=== PATIENT | female | born 1970 | race Caucasian/White ===

== ENCOUNTER 2019-09-11 16:39 | Inpatient (IN) ==
[2019-09-11 18:00] LABS: Basophils # (auto) 0.01 K/uL (0-0.2); Basophils % (auto) 0.1 %; Eosinophils # (auto) 0.03 K/uL (0-0.5); Eosinophils % (auto) 0.2 %; Hematocrit (blood only) 40.6 % (37-47); Hemoglobin 13.8 g/dL (12.0-16.0); Immature Granulocytes # (auto) 0.07 K/uL (0.00-0.02); Immature Granulocytes % (auto) 0.4 %; Lymphocytes # (auto) 1.08 K/uL (1.2-3.4); Lymphocytes % (auto) 5.9 %; Mean Corpuscular Hemoglobin 29.4 pg (25-34); Mean Corpuscular Volume 86.6 fL (80-100); Mean Platelet Volume 9.9 fL (7.4-10.4); Monocytes # (auto) 0.62 K/uL (0.11-0.59); Monocytes % (auto) 3.4 %; Neutrophils # (auto) 16.37 K/uL (1.4-6.5); Platelet Count 311 K/uL (130-400); RDW Coefficient of Variation 14.2 % (11.5-14.5); Red Blood Count 4.69 M/uL (4.2-5.4); White Blood Count 18.18 K/uL (4.8-10.8)
[2019-09-11] MEDS ORDERED: ONDANSETRON INJ 2 MG/ML 2 ML VIAL IV STA (18:05)
[2019-09-11] MEDS ORDERED: HYDROmorphone INJ 1 MG/ML SYRINGE IV STA (18:05)
[2019-09-11] MEDS ORDERED: SODIUM CHLORIDE 0.9% 1000ML 2,000 ML IV ONE (18:05)
--- NOTE | 2019-09-11 18:10 | Emergency Department Note ---
Impression & Plan Abdominal pain, Hemorrhagic cyst of left ovary, Ovary, inflammation, Leukocytosis ED Provider Note NAME: GOSIA BERRIOS AGE: 48 SEX: F : 1970 ARRIVES VIA: Walk-In INFORMANT: Patient ED PROVIDER(S): Dave Thompson DO CHIEF COMPLAINT: Abdominal pain HPI: Patient is a 48-year-old female who presents the ER for left lower quadrant abdominal pain. This started yesterday. She was seen at [facility] and had a CT done and was discharged home with a possible ovarian cyst. She followed up with [facility] today. They noted that it was her balance and not her ovaries. Patient notes that any current movement makes the pain worse. Currently a 10 out of 10. She is taking Ultram with no improvement. No nausea or vomiting. No diarrhea. Last bowel movement within the past 24 hours. No dysuria urgency or frequency. She just started her menstrual cycle yesterday. She notes it is a very light flow. Denies any cough fevers. No other exacerbating or remitting factors. ROS: See above HPI for pertinent positives & negatives. A total of 10 systems reviewed and were otherwise negative. PAST MEDICAL HISTORY:See Below PAST SURGICAL HISTORY:See Below FAMILY HISTORY:See Below SOCIAL HISTORY:See Below HOME MEDICATIONS:See Below ALLERGIES:See Below VITALS:See Below PHYSICAL EXAMINATION: GENERAL: Sitting up in bed, alert, moderate distress holding left lower quadrant EYE EXAM: normal conjunctiva. OROPHARYNX: no exudate, no erythema, lips, buccal mucosa, and tongue normal and mucous membranes are moist NECK: supple, no nuchal rigidity, no adenopathy, non-tender LUNGS: Clear to auscultation. Normal chest wall mechanics HEART: no murmurs, S1 normal and S2 normal ABDOMEN: abdomen soft, tender palpation left lower quadrant, normo-active bowel sounds, no masses, no rebound or guarding. BACK: Back is symmetrical on inspection and there is no deformity, no midline tenderness, no CVA tenderness. SKIN: no rashes and no bruising UPPER EXTREMITIES: upper extremities are grossly normal. LOWER EXTREMITIES: No pitting edema. NEURO EXAM: Normal sensorium, cranial nerves II-XII grossly intact, normal speech, no gross weakness of arms, no gross weakness of legs. MEDICAL DECISION MAKING: Patient is a 48 y/o female who presents to the ER for severe left lower quadrant abdominal pain. Patient was seen in outside facility and had a CT and ultrasound of her left ovary which showed a hemorrhagic cyst. She follow-up with [facility] presents today for worsening pain. IV was established blood work was obtained. Labs show a leukocytosis of 18,000. No significant anemia. BMP with mild hypokalemia. LFTs bilirubin was unremarkable. hCG was negative. UA was contaminated with multiple epithelial cells. as discussed was negative. CT abdomen pelvis shows enlarged ovary with stranding. Concern for torsion consequently called [facility]. They recommended ultrasound evaluated patient at bedside. Ultrasound shows a hemorrhagic cyst. Patient was given 1.5 mg of Dilaudid. She became slightly hypoxic. She still having significant pain. She was taken to the OR by [facility]. Triage Nursing notes reviewed. Prior medical records reviewed Vital Signs: reviewed and remarkable for tachycardic Differential diagnosis: Differential diagnoses includes but is not limited to gastritis, peptic ulcer disease, GERD, gallbladder disease, pancreatitis, small bowel obstruction, acute coronary syndrome, pericarditis, ischemic bowel, irritable bowel disease, irri table bowel syndrome, appendicitis, diverticulitis, malignancy, hernia, urinary tract infection, torsion, /ectopic (if female), perforation, trauma, infectious. ER treatment provided: See below Diagnostics interpreted by me: ECG: none Cardiac Monitoring: An order was placed for continuous cardiac monitoring. The monitor shows a rate of 110 with sinus rhythm. Laboratory studies: As stated above and show below. Imaging studies: Ultrasound shows hemorrhagic left ovarian cyst CT shows large left ovarian mass Consultation(s): Maria Dolores with Dr. Liu from [facility] ED COURSE: Procedures: none Critical Care: None Past Med/Surg History Social History Feels Safe at Home: Yes Smoking Status: Current every day smoker Allergies Allergies Allergy/AdvReac Type Severity Reaction Status Date / Time No Known Allergies Allergy Mild Unverified 12/31/05 17:03 Home Meds Home Medications Medication Instructions Recorded Confirmed hydroxyzine HCl 10 mg PO UD PRN 09/11/19 09/11/19 ibuprofen 400 mg PO Q6H PRN 09/11/19 09/11/19 rivaroxaban [Xarelto] 10 mg PO DAILY 09/11/19 09/11/19 simethicone [Mi-Acid Gas 80 mg PO QID PRN 09/11/19 09/11/19 Relief(simethicon)] Results & Data (ED) Vital Signs Vital Signs - 24 hr 09/11/19 16:50 09/11/19 18:49 09/11/19 19:33 Temperature 37.3 C Temperature Source Oral Pulse Rate 135 H Pulse Rate [Finger] 118 H 111 H Respiratory Rate 20 20 18 Respiratory Effort / Characteristics Non-Labored Spontaneous Non-Labored Spontaneous Non-Labored Respiratory Depth Normal Normal Normal Respiratory Pattern Regular Blood Pressure 118/76 Blood Pressure [Right Arm] 137/89 129/82 Blood Pressure Mean 90 Blood Pressure Mean [Right Arm] 105 97 Pulse Oximetry 95 96 94 Oxygen Delivery Method Room Air Room Air Room Air Oxygen Flow Rate Sepsis Recent Fever Within 48 Hours No Sepsis Action Taken by Nursing No Action Required 09/11/19 21:30 09/11/19 21:55 09/11/19 22:01 Temperature 37.7 C H Temperature Source Oral Pulse Rate Pulse Rate [Finger] 118 H Respiratory Rate 20 18 18 Respiratory Effort / Characteristics Non-Labored Respiratory Depth Normal Respiratory Pattern Blood Pressure Blood Pressure [Right Arm] 129/78 Blood Pressure Mean Blood Pressure Mean [Right Arm] 95 Pulse Oximetry 92 88 L 92 Oxygen Delivery Method Room Air Room Air Nasal Cannula Oxygen Flow Rate 2 Sepsis Recent Fever Within 48 Hours Sepsis Action Taken by Nursing 09/11/19 22:32 Temperature Temperature Source Pulse Rate Pulse Rate [Finger] 115 H Respiratory Rate 18 Respiratory Effort / Characteristics Respiratory Depth Respiratory Pattern Blood Pressure Blood Pressure [Right Arm] 119/70 Blood Pressure Mean Blood Pressure Mean [Right Arm] 86 Pulse Oximetry 92 Oxygen Delivery Method Nasal Cannula Oxygen Flow Rate 2 Sepsis Recent Fever Within 48 Hours Sepsis Action Taken by Nursing Laboratory Data Result diagrams: 09/11/19 17:50 09/11/19 17:50 Lab Results 09/11/19 09/11/19 09/11/19 Range/Units 17:50 17:50 17:50 WBC 18.18 H (4.8-10.8) K/uL RBC 4.69 (4.2-5.4) M/uL Hgb 13.8 (12.0-16.0) g/dL Hct 40.6 (37-47) % MCV 86.6 (80-100) fL MCH 29.4 (25-34) pg MCHC 34.0 (32-36) g/dL RDW Std Deviation 44.0 (36.4-46.3) fL RDW Coeff of Amelia 14.2 (11.5-14.5) % Plt Count 311 (130-400) K/uL MPV 9.9 (7.4-10.4) fL Immature Gran % (Auto) 0.4 % Neut % (Auto) 90.0 % Lymph % (Auto) 5.9 % [place] % (Auto) 3.4 % Eos % (Auto) 0.2 % Baso % (Auto) 0.1 % Neut # (Auto) 16.37 H (1.4-6.5) K/uL Lymph # (Auto) 1.08 L (1.2-3.4) K/uL [place] # (Auto) 0.62 H (0.11-0.59) K/uL Eos # (Auto) 0.03 (0-0.5) K/uL Baso # (Auto) 0.01 (0-0.2) K/uL Immature Gran # (Auto) 0.07 H (0.00-0.02) K/uL Sodium 138 (136-145) mmol/L Potassium 3.3 L (3.5-5.1) mmol/L Chloride 108 H (98-107) mmol/L Carbon Dioxide 21 (21-32) mmol/L Anion Gap 9.0 (3-11) BUN 9 (7-18) mg/dl Creatinine 0.94 (0.6-1.2) mg/dl Est Cr Clr Drug Dosing 82.2 ml/min Est GFR ( Amer) 82.0 Est GFR (Non-Af Amer) 70.7 BUN/Creatinine Ratio 9.1 L (10-20) Glucose 122 H (70-99) mg/dl Calcium 8.7 (8.5-10.1) mg/dl Total Bilirubin 0.6 (0.2-1) mg/dl AST 6 L (15-37) U/L ALT 13 (12-78) U/L Alkaline Phosphatase 70 (45-117) U/L Total Protein 8.5 H (6.4-8.2) gm/dl Albumin 3.3 L (3.4-5.0) gm/dl Globulin 5.1 H (2.5-4.0) gm/dl Albumin/Globulin Ratio 0.6 L (0.9-2) Lipase 47 L (73-393) U/L HCG, Qual Negative (Negative) Urine Color Urine Appearance (Clear) Urine pH (4.5-7.5) Ur Specific [place] (1.000-1.030) Urine Protein (Negative) Urine Glucose (UA) (Negative) Urine Ketones (Negative) Urine Blood (Negative) Urine Nitrite (Negative) Urine Bilirubin (Negative) Urine Urobilinogen (Negative) Ur Leukocyte Esterase (Negative) Urine WBC (Auto) (0-5) /hpf Urine RBC (Auto) (0-4) /hpf U Hyaline Cast (Auto) (0-5) /lpf U Epithel Cells (Auto) (0-5) /lpf Urine Bacteria (Auto) (Negative) Urine Mucus (None Prsent) Urine Yeast POC Ur Test (NEG) 09/11/19 09/11/19 Range/Units Unknown Unknown WBC (4.8-10.8) K/uL RBC (4.2-5.4) M/uL Hgb (12.0-16.0) g/dL Hct (37-47) % MCV (80-100) fL MCH (25-34) pg MCHC (32-36) g/dL RDW Std Deviation (36.4-46.3) fL RDW Coeff of Amelia (11.5-14.5) % Plt Count (130-400) K/uL MPV (7.4-10.4) fL Immature Gran % (Auto) % Neut % (Auto) % Lymph % (Auto) % [place] % (Auto) % Eos % (Auto) % Baso % (Auto) % Neut # (Auto) (1.4-6.5) K/uL Lymph # (Auto) (1.2-3.4) K/uL [place] # (Auto) (0.11-0.59) K/uL Eos # (Auto) (0-0.5) K/uL Baso # (Auto) (0-0.2) K/uL Immature Gran # (Auto) (0.00-0.02) K/uL Sodium (136-145) mmol/L Potassium (3.5-5.1) mmol/L Chloride (98-107) mmol/L Carbon Dioxide (21-32) mmol/L Anion Gap (3-11) BUN (7-18) mg/dl Creatinine (0.6-1.2) mg/dl Est Cr Clr Drug Dosing ml/min Est GFR ( Amer) Est GFR (Non-Af Amer) BUN/Creatinine Ratio (10-20) Glucose (70-99) mg/dl Calcium (8.5-10.1) mg/dl Total Bilirubin (0.2-1) mg/dl AST (15-37) U/L ALT (12-78) U/L Alkaline Phosphatase (45-117) U/L Total Protein (6.4-8.2) gm/dl Albumin (3.4-5.0) gm/dl Globulin (2.5-4.0) gm/dl Albumin/Globulin Ratio (0.9-2) Lipase (73-393) U/L HCG, Qual (Negative) Urine Color Dark Yellow Urine Appearance Clear (Clear) Urine pH 5.0 (4.5-7.5) Ur Specific [place] 1.026 (1.000-1.030) Urine Protein 1+ H (Negative) Urine Glucose (UA) Negative (Negative) Urine Ketones Trace H (Negative) Urine Blood 3+ H (Negative) Urine Nitrite Negative (Negative) Urine Bilirubin Negative (Negative) Urine Urobilinogen Negative (Negative) Ur Leukocyte Esterase Negative (Negative) Urine WBC (Auto) 1-5 (0-5) /hpf Urine RBC (Auto) 0-4 (0-4) /hpf U Hyaline Cast (Auto) 1-5 (0-5) /lpf U Epithel Cells (Auto) >30 H (0-5) /lpf Urine Bacteria (Auto) 2+ H (Negative) Urine Mucus Present A (None Prsent) Urine Yeast Not Reportable POC Ur Test NEG (NEG) Administered Medications Ioversol (Optiray 320 100ml) 93 ml IV ONCE PRN PRN Reason: Interaction Checking Stop: 09/15/19 19:05 Last Admin: 09/11/19 19:07 Dose: 93 ml Documented by: [id number] Discontinued Medications Hydromorphone HCl (Dilaudid) 1 mg IV NOW STA Stop: 09/11/19 18:06 Last Admin: 09/11/19 18:47 Dose: 1 mg Documented by: [id number] Hydromorphone HCl (Dilaudid) 0.5 mg IV NOW STA Stop: 09/11/19 21:10 Last Admin: 09/11/19 21:31 Dose: 0.5 mg Documented by: [id number] Sodium Chloride (Nss 1000ml) 2,000 mls @ 999 mls/hr IV .Q2H1M ONE Stop: 09/11/19 20:05 Last Infusion: 09/11/19 20:47 Dose: 0 mls/hr Documented by: [id number] Admin: 09/11/19 18:47 Dose: 999 mls/hr Documented by: [id number] Ondansetron HCl (Zofran) 4 mg IV NOW STA Stop: 09/11/19 18:06 Last Admin: 09/11/19 18:47 Dose: 4 mg Documented by: [id number] Discharge Plan Visit Data Chief Complaint: Abdominal Pain Stated Complaint: ABD PAIN ED Provider: Dave Thompson Discharge Problem: Abdominal pain, Hemorrhagic cyst of left ovary, Ovary, inflammation, Leuk ocytosis Discharge Problem: Abdominal pain Qualifiers: Abdominal location: unspecified location Qualified Code(s): R10.9 - Unspecified abdominal pain Leukocytosis Qualifiers: Leukocytosis type: unspecified Qualified Code(s): D72.829 - Elevated white blood cell count, unspecified
[2019-09-11 18:16] LABS: Albumin Level 3.3 gm/dl (3.4-5.0); BUN Creatinine Ratio 9.1 (10-20); Calcium 8.7 mg/dl (8.5-10.1); Creatinine Clr Calc Pharmacy 82.2 ml/min; Est GFR (Non-African American) 70.7; Potassium 3.3 mmol/L (3.5-5.1)
[2019-09-11 18:19] LABS: Albumin Globulin Ratio 0.6 (0.9-2); Bilirubin,Total 0.6 mg/dl (0.2-1); Globulin 5.1 gm/dl (2.5-4.0); Total Protein 8.5 gm/dl (6.4-8.2)
[2019-09-11 18:23] LABS: Pregnancy Test, Serum Negative (Negative)
[2019-09-11 19:05] LABS: Appearance Urine Clear (Clear); Bilirubin Urine Negative (Negative); Blood Urine 3+ (Negative); Color Urine Dark Yellow; Epithelial Cell Urine Auto >30 /lpf (0-5); Glucose Urine UA Negative (Negative); Ketones Urine Trace (Negative); Leukocyte Esterase Urine Negative (Negative); Nitrite Urine Negative (Negative); Protein Urine 1+ (Negative); RBC Urine Automated 0-4 /hpf (0-4); Specific Gravity Urine 1.026 (1.000-1.030); Urobilinogen Urine Negative (Negative)
[2019-09-11] MEDS ORDERED: IOVERSOL 100ml IV PRN (19:06)
[2019-09-11 19:20] LABS: Bacteria Urine Automated 2+ (Negative); Mucus Urine Present (None Prsent)
--- NOTE | 2019-09-11 19:29 | CT Scan Report ---
CT abd pelvis IV con only CLINICAL HISTORY: Severe left lower quadrant pain COMPARISON STUDY: None. TECHNIQUE: Patient was scanned in a dynamic helical fashion during intravenous administration of 93 c c of Optiray 320. A dose lowering technique was utilized adhering to the principles of ALARA. CT DOSE: 720.33 mGy.cm FINDINGS: Lower chest: There are bibasilar opacity statistically atelectatic. Liver: The contrast-enhanced liver is normal in size, contour, and attenuation. There is no intrahepa tic biliary ductal dilatation. The hepatic veins and portal veins are patent. Gallbladder: The gallbladder is mildly distended and contains multiple calculi. There is no perichole cystic edema. Spleen: Mildly enlarged measuring 16 cm Pancreas: Unremarkable. Adrenal glands: There is an indeterminate 2 cm left adrenal nodule. There is minor right adrenal glan d thickening. Further evaluation could be obtained with an adrenal protocol CT scan as deemed clinica lly appropriate Kidneys: There is no hydronephrosis. No solid renal masses are visualized. There is a 12 mm left uriah l cyst. Bowel: There is borderline appendiceal dilatation without evidence of periappendiceal inflammatory ch rpadeep. There are fluid-filled loops of colon and small bowel. There are no transition zones indicate b owel obstruction. There is colonic diverticulosis without current evidence of acute diverticulitis. Peritoneum: There is a small amount of free pelvic fluid slightly greater than expected for physiolog ic free fluid. There is a small fat-containing umbilical hernia. Vasculature: The abdominal aorta is normal in course and caliber. Adenopathy: None. Pelvic viscera: There is an enlarged left ovary measuring 63 mm. There is infiltration of the adjacen t fat. Clinical correlation to exclude ovarian torsion or tubo-ovarian abscess is recommended. Skeletal structures: No destructive osseous lesions are seen. IMPRESSION: 1. Enlarged multicystic left ovary measuring 63 mm. There is infiltration of the adjacent fat. Clinic al correlation to exclude ovarian torsion or tubo-ovarian abscess is recommended. 2. No evidence of bowel obstruction. No evidence of free air 3. Diverticulosis without current evidence of acute diverticulitis 4. Free pelvic fluid, slightly in excess of that expected for physiologic free fluid 5. Borderline appendiceal dilatation without evidence of periappendiceal inflammatory change 6. Cholelithiasis. 7. 3 cm indeterminate left adrenal nodule ACT 112: Negative or not required by law. Electronically signed by: Tomi Lee M.D. 09/11/2019 7:28 PM
[2019-09-11] MEDS ORDERED: HYDROmorphone INJ 0.5 MG/0.5 ML SYR IV STA (21:09)
[2019-09-11] MEDS ORDERED: BUPIVACAINE 0.5 % 5 MG/1 ML MPF 30ML VIAL ONE (22:09)
--- NOTE | 2019-09-11 22:15 | Anesthesiology Consultation ---
Date of Service September 11, 2019 Assessment & Plan Chart Review Chart Review: Acceptable Risk for Surgery and Patient NOT seen in Pre Admission Testing Consults Requested none ASA [id number] Proposed Anesthesia Anesthesia Type: General History Surgery Operation Date: 09/11/19 22:00 Proposed Procedures p Laparoscopic Ectopic - Valentin Liu MD Height/Weight Height: 5 ft 7 in Weight: 89.4 kg Allergies Allergy/AdvReac Type Severity Reaction Status Date / Time No Known Allergies Allergy Mild Unverified 12/31/05 17:03 Medications Home Medications Medication Instructions Recorded Confirmed Last Taken hydroxyzine HCl 10 mg PO UD PRN 09/11/19 09/11/19 Unknown ibuprofen 400 mg PO Q6H PRN 09/11/19 09/11/19 Unknown rivaroxaban [Xarelto] 10 mg PO DAILY 09/11/19 09/11/19 09/11/19 simethicone [Mi-Acid Gas 80 mg PO QID PRN 09/11/19 09/11/19 Unknown Relief(simethicon)] Active Medications Generic Name Dose Route Start Last Admin Trade Name Freq PRN Reason Stop Dose Admin Ioversol 93 ml 09/11/19 19:06 09/11/19 19:07 Optiray 320 100ml IV 09/15/19 19:05 93 ml ONCE PRN Administration Interaction Checking Exercise / Class Metabolic Activity II 4-5 Yardwork/Stairs/Walk up hill Past Anesthesia History No Hx of Anesthesia Complications and No Family Hx of Anesthesia Complications History of PONV No Hx of PONV and No Hx of Motion Sickness Social History Smoking Status: Current every day smoker Physical Exam Vital Signs Last Vital Signs Temp 37.7 C H 09/11/19 21:30 Pulse 118 H 09/11/19 21:30 Resp 18 09/11/19 22:01 BP 129/78 09/11/19 21:30 Pulse Ox 92 09/11/19 22:01 Testing Laboratory Results 09/11/19 17:50 09/11/19 17:50 Urine Color Dark Yellow 09/11/19 Unknown Urine Appearance Clear (Clear) 09/11/19 Unknown Urine pH 5.0 (4.5-7.5) 09/11/19 Unknown Ur Specific [place] 1.026 (1.000-1.030) 09/11/19 Unknown Urine Protein 1+ (Negative) H 09/11/19 Unknown Urine Glucose (UA) Negative (Negative) 09/11/19 Unknown Urine Ketones Trace (Negative) H 09/11/19 Unknown Urine Nitrite Negative (Negative) 09/11/19 Unknown Ur Leukocyte Esterase Negative (Negative) 09/11/19 Unknown Urine WBC (Auto) 1-5 /hpf (0-5) 09/11/19 Unknown Urine RBC (Auto) 0-4 /hpf (0-4) 09/11/19 Unknown U Hyaline Cast (Auto) 1-5 /lpf (0-5) 09/11/19 Unknown U Epithel Cells (Auto) >30 /lpf (0-5) H 09/11/19 Unknown Urine Bacteria (Auto) 2+ (Negative) H 09/11/19 Unknown 09/11/19 Unknown POC Ur Test NEG
[2019-09-11] MEDS ORDERED: fentaNYL citrate 100 MCG/2 ML VIAL IV PRN (22:40)
[2019-09-11] MEDS ORDERED: HYDROmorphone INJ 1 MG/ML SYRINGE IV PRN (22:40)
[2019-09-11] MEDS ORDERED: FLUMAZENIL 0.1 MG/1 ML 10 ML VIAL IV PRN (22:40)
[2019-09-11] MEDS ORDERED: ONDANSETRON INJ 2 MG/ML 2 ML VIAL IV PRN (22:40)
[2019-09-11] MEDS ORDERED: LABETALOL HCL IV 5 MG/ML 20ML IV PRN (22:40)
[2019-09-11] MEDS ORDERED: NALOXONE HCL 0.4 MG/1 ML VIAL/CARP IV PRN (22:40)
[2019-09-11] MEDS ORDERED: ATROPINE SULFATE 0.1 MG/ML 10ML SYR IV PRN (22:40)
[2019-09-11] MEDS ORDERED: ePHEDrine sulfate 50 MG/ML AMP IV PRN (22:40)
[2019-09-11] MEDS ORDERED: PROMETHAZINE HCL 12.5 MG in SODIUM CHLORIDE 0.9% 50 ML IV PRN (22:40)
[2019-09-11] MEDS ORDERED: PROPOFOL IV EMULSION 10 MG/ML 20 ML VIAL IV ONE (22:48)
[2019-09-11] MEDS ORDERED: SUCCINYLCHOLINE 100MG/5ML SYR IV ONE (22:48)
[2019-09-11] MEDS ORDERED: fentaNYL citrate 100 MCG/2 ML VIAL ONE ×3 (22:49→23:39)
[2019-09-11] MEDS ORDERED: MIDAZOLAM HCL 1 MG/ML 2ML VIAL ONE (22:50)
--- NOTE | 2019-09-11 22:58 | History & Physical Bridge Note ---
Date of Service September 11, 2019 History & Physical Bridge Note I have examined the patient, reviewed the History & Physical and in the interval since the performance of the History & Physical I have noted the following changes of clinical significance: no changes noted
--- NOTE | 2019-09-11 23:22 | Consultation Report ---
DATE OF CONSULTATION: 09/11/2019 REASON FOR CONSULTATION: Left lower quadrant abdominal pain with ovarian cyst. BRIEF HISTORY: Yudith is a 48-year-old who presented with acute onset abdominal pain yesterday. The patient reports that the pain started with rapid onset of severe left lower quadrant pain. The patient described the pain as a sharp, stabbing to colicky type pain that is persistent since yesterday. The patient reports the pain has progressively worsened over the past day and has come to a point where it has become unbearable for her. She was seen at several outside Emergency Departments and initially was seen and was noted to have a left ovarian cyst, which they suspected was a hemorrhagic cyst. She was sent to a different facility for further evaluation and that Emergency Department felt that this was something that was bowel related. The patient presented today to our Emergency Department for further evaluation and second opinion. The CT scan was performed which was notable for a left adnexal mass, likely ovarian or tubal in origin. The suspicion based on CT scan was a likely ovarian torsion versus left tubo-ovarian abscess. An ultrasound was performed subsequently, which noted a left hemorrhagic cyst in the ovary measuring approximately 7 cm in greatest diameter. There was noted to be both venous and arterial flow in the ovary with normal-appearing waveforms present. There was noted to be some complex fluid in the posterior cul-de-sac.. The uterus was unremarkable otherwise. Right adnexa unremarkable. The ultrasound findings were discussed with Yudith in the ED today and options were further discussed. PAST MEDICAL HISTORY: The patient denies any significant past medical history. PAST SURGICAL HISTORY: Prior section. MEDICATIONS: Please see EMR. 1. Hydroxyzine. 2. Ibuprofen. 3. Xarelto. 4. Simethicone. ALLERGIES: The patient denies any known drug allergies. FAMILY HISTORY: Noncontributory to current admission. SOCIAL HISTORY: The patient reports tobacco use. Denies illicit drug use. PHYSICAL EXAMINATION: At time of evaluation, VITAL SIGNS: Blood pressure 129/78, pulse 118, respiratory rate 20, temperature 37.7. GENERAL: The patient was very uncomfortable appearing, but in no acute distress, alert and oriented x3. ABDOMEN: Soft, but tender significantly in the left lower quadrant. Remainder of abdomen was nontender. There was noted to be some rebound and guarding in the left lower quadrant. PELVIC: There was noted to be no cervical motion tenderness. On palpation of the left adnexa, it was noted to be exquisitely tender for the patient. CARDIAC: Normal by the Emergency Department. PULMONARY: Normal by the Emergency Department. ASSESSMENT AND PLAN: Yudith is a 48-year-old who presents with acute onset left lower quadrant pain in the setting of a 7 mm left ovarian cyst and CT scan concerning for possible torsion. Ultrasound did not confirm this. The patient's exam is notable for a quite tender left adnexa and left lower quadrant. I am concerned that there may be some level of ovarian torsion occurring especially in light of the patient's colicky occurrence of the pain, so intermittent torsion is definitely possible. I discussed the imaging findings of the hemorrhagic cyst as well as the question of the ovarian torsion and offered admission for pain relief versus OR for removal of the left ovary and fallopian tube. The patient preferred to proceed to the OR for an operative laparoscopy with left salpingo-oophorectomy, possible right salpingo-oophorectomy. Consents were reviewed and signed in the ED. Risks and benefits of the procedure were discussed in detail and all questions answered to the patient and her family members' satisfaction. HAL
[2019-09-11] MEDS ORDERED: CISATRACURIUM BESYLATE IV SOLN 2 MG/ML 10 ML VIAL IV ONE (23:27)
[2019-09-11] MEDS ORDERED: ONDANSETRON INJ 2 MG/ML 2 ML VIAL ONE (23:30)
[2019-09-11] MEDS ORDERED: DEXAMETHASONE SOD INJ 4 MG/ML VIAL ONE (23:31)
[2019-09-12] MEDS ORDERED: cefOXitin 2,000 MG in DEXTROSE 5% 50 ML IV STA (00:12)
[2019-09-12] MEDS ORDERED: fentaNYL citrate 100 MCG/2 ML VIAL ONE (00:39)
[2019-09-12] MEDS ORDERED: TISSEEL FIBRIN SEALANT 10ML TOP ONE (01:25)
[2019-09-12] MEDS ORDERED: GLYCOPYRROLATE 0.2 MG/ML VIAL ONE (01:29)
[2019-09-12] MEDS ORDERED: NEOSTIGMINE METHYLSULFATE 5 MG/5 ML SYR ONE (01:29)
[2019-09-12] MEDS ORDERED: ONDANSETRON INJ 2 MG/ML 2 ML VIAL IV PRN (01:41)
[2019-09-12] MEDS ORDERED: OXYCODONE/ACETAMINOPHEN 5mg/325mg TAB PO PRN (01:41)
--- NOTE | 2019-09-12 01:41 | Post Operative Brief Note ---
PG Immediate Post Op with CF Date of Surgery September 12, 2019 Pre & Post Diagnosis Operation Date: 09/11/19 22:00 Pre-Op Diagnosis: Left lower quadrant abdominal pain with ovarian cyst Post-Op Diagnosis: Ruptured Left Tubal/Ovarian Abscess I identified the patient and participated in the time-out.: Yes Procedure Operation Date: 09/11/19 22:00 Actual Procedures p Laparoscopic Left Salpingo-oophorectomy, Pelvic Washings, and Lysis of Adhesions(Left) - Valentin Liu MD Surgeon Valentin Liu MD Oncology Nurse Navigator None Estimated Blood Loss 100 Findings Consistent with Post-Op Diagnosis Specimens Specimen Description: Cytology #1 Pelvic washings Microbiology #1 Pelvic washing Anaerobic aerobic, gram stain and culture and sentivity Permanent Specimen A: Left Fallopian tube and Ovary Drains Mcdonough Catheter (inserted at started of case by Dr. Liu without diffculty, removed at end of case by Dr. Liu, draining clear yellow urine) and Erickson- Brothers Drain (10 fr flat)
--- NOTE | 2019-09-12 02:35 | Anesthesiology Progress Note ---
Date of Service September 12, 2019 Anesthesia Post Procedure Vital Signs Vital Signs: Temp Pulse Pulse Resp BP BP Pulse Ox 09/11/19 22:32 115 H 18 119/70 92 09/11/19 22:01 18 92 09/11/19 21:55 18 88 L 09/11/19 21:30 37.7 C H 118 H 20 129/78 92 09/11/19 19:33 111 H 18 129/82 94 09/11/19 18:49 118 H 20 137/89 96 09/11/19 16:50 37.3 C 135 H 20 118/76 95 Pain Intensity Abdomen: Pain Intensity: 3 Transfer of Care Handoff Completed per policy Notes Mental Status: alert / awake / arousable Patient Amnestic to Procedure: Yes Nausea / Vomiting: adequately controlled Pain: adequately controlled Airway Patency, RR, SpO2: stable & adequate BP & HR: stable & adequate Hydration State: stable & adequate Anesthetic Complications: no major complications apparent
[2019-09-12] MEDS: LACTATED RINGER'S 1,000 ML IV SCH ×2 (03:30→12:40)
[2019-09-12] MEDS: DOXYCYCLINE HYCLATE 100 MG in DEXTROSE 5% 100 ML IV SCH ×2 (04:17→16:05)
[2019-09-12] MEDS: cefOXitin 2,000 MG in DEXTROSE 5% 50 ML IV SCH ×3 (06:34→18:50)
--- NOTE | 2019-09-12 07:37 | Gynecologic Progress Note ---
Date of Service September 12, 2019 Assessment & Plan (1) TOA (tubo-ovarian abscess): 48yo with ruptured TOA s/p LSO and washout. KALI drain in place with serosanguineous discharge. Significant clinic symptomatic improvement since prior to surgery. On IV antibiotics. WBC 18 yesterday. On Xarelto for DVT 1. Continue IV antibiotic until 24-48 hour afebrile and with clinical and laboratory improvement. 2. DVT: Continue Xarelto 3. Discharge planning: discharge home with Augmentin XR 2g BID (2) DVT (deep venous thrombosis): Admission and Anticipated Discharge Date Admission Date: September 12, 2019 Chris Zurita is a 48 with ruptured TOA s/p laparoscopic LSO last night. Procedure was without complication. Patient reports significant decrease in pelvic pain today. Patient has remained afebrile but has elevated WBC at 18 yesterday. Physical Exam Gastrointestinal (Abdomen): Inspection/Auscultation: abdomen not distended Percussion/Palpation: + abdomen tender (Reporting mild tenderday throughout) and abdomen soft; no guarding and abdomen not rigid Results & Data ([facility]) Vital Signs (Past 12 Hours) Vital Signs Temp Pulse Resp BP BP Pulse Ox 09/12/19 06:30 78 18 121/77 92 09/12/19 05:25 36.9 C 85 18 123/78 92 09/12/19 04:45 80 20 120/76 93 09/12/19 04:00 36.8 C 71 18 130/79 91 09/12/19 03:53 36.8 C 97 H 20 146/79 H 93 09/12/19 03:11 86 19 133/82 91 09/12/19 03:05 94 H 22 144/76 H 92 09/12/19 02:55 90 20 127/79 93 09/12/19 02:45 100 H 22 138/94 94 09/12/19 02:35 78 20 132/79 93 09/12/19 02:25 36.6 C 99 H 22 147/82 H 93 09/12/19 02:15 36.6 C 77 16 128/92 92 09/11/19 22:32 115 H 18 119/70 92 09/11/19 22:01 18 92 09/11/19 21:55 18 88 L 09/11/19 21:30 37.7 C H 118 H 20 129/78 92 09/11/19 19:33 111 H 18 129/82 94 PG Care Time/CCT Total # of Minutes Spent Total Time Spent with Patient: Total time spent is greater than 50% in coordination of care (as documented) at patient's floor/unit and/or counseling patient: Coding Level of Care Code None Diagnoses TOA (tubo-ovarian abscess) N70.93 DVT (deep venous thrombosis) I82.409
--- NOTE | 2019-09-12 08:02 | Ultrasound Report ---
EXAMINATION: PELVIC ULTRASOUND (transabdominal and endovaginal scanning) CLINICAL HISTORY: Left lower quadrant abdominal pain. Abnormal CT scan. COMPARISON STUDY: CT scan dated 09/11/2019 FINDINGS: The uterus measured 8.5 x 4.2 x 5.6 cm. The endometrial stripe measured 4 mm. The right ovary was nonvisualized The left ovary measured 6.8 x 4.5 x 4.1 cm. It contains a complex cystic area measuring 3.5 cm.. There is no ultrasonographic evidence of ovarian torsion. It should be noted that ovarian torsion can be present with normal Doppler ultrasonographic findings. There is complex free fluid within the cul-de-sac. IMPRESSION: 1. Complex left ovarian cystic lesion. Complex free fluid within the cul-de-sac. Tubo-ovarian abscess remains within the differential. Ovarian torsion is less likely although not excluded. 2. Nonvisualization right ovary. 3. Ultrasonographically normal uterus. ACT 112: Negative or not required by law. Electronically signed by: Tomi Lee M.D. 09/12/2019 8:01 AM
[2019-09-12] MEDS: SIMETHICONE 80 MG CHEW PO PRN (09:03)
[2019-09-12] MEDS: RIVAROXABAN 10 MG TABLET PO SCH (09:03)
[2019-09-12] MEDS: DOCUSATE SODIUM 100 MG CAP PO SCH ×2 (09:03→20:24)
[2019-09-12] MEDS: OXYCODONE/ACETAMINOPHEN 5mg/325mg TAB PO PRN ×3 (09:03→17:28)
--- NOTE | 2019-09-12 20:30 | Gynecologic Progress Note ---
Date of Service September 12, 2019 Assessment & Plan (1) TOA (tubo-ovarian abscess): postoperatively doing well. (2) Low oxygen saturation: Will check a chest XR as initial work up. Admission and Anticipated Discharge Date Admission Date: September 12, 2019 Subjective Patient is resting comfortably in bed. Was made aware by nursing that have not been able to wean off her oxygen. She is on two liters NC. Would sat down to 86% when off. She notes she is not sob, and did not feel that way when her sat was low. She notes no chest pain. Notes no n/v and tolerated soup and toast tonight. She notes she is breathing normally. Notes she feels much better. Tolerating po pain meds. Review of Systems Review of Systems: All systems reviewed & are unremarkable except as noted in HPI & below Physical Exam Constitutional: WD/WN, vitals as above Psychiatric: A+Ox3, euthymic affect Results & Data ([facility]) Vital Signs (Past 12 Hours) Vital Signs Temp Pulse Resp BP Pulse Ox 09/12/19 12:45 36.7 C 86 20 109/73 93 PG Care Time/CCT Total # of Minutes Spent Total Time Spent with Patient: Total time spent is greater than 50% in coordination of care (as documented) at patient's floor/unit and/or counseling patient: Coding Level of Care Code None Diagnoses TOA (tubo-ovarian abscess) N70.93 Low oxygen saturation R79.81
--- NOTE | 2019-09-12 22:51 | XRay Report ---
XR chest 2V PA/lateral CLINICAL HISTORY: low O2 sats dyspnea COMPARISON STUDY: No previous studies for comparison. FINDINGS: Minimal parenchymal infiltrate left lung base. Lungs otherwise appear clear. No evidence of pneumothorax. IMPRESSION: Minimal parenchymal infiltrate/atelectasis left base. ACT 112: Negative or not required by law. The above report was generated using voice recognition software. It may contain grammatical, syntax or spelling errors. Electronically signed by: Anup Quintana M.D. 09/12/2019 10:50 PM
[2019-09-13] MEDS: cefOXitin 2,000 MG in DEXTROSE 5% 50 ML IV SCH ×4 (00:07→18:53)
[2019-09-13] MEDS: LACTATED RINGER'S 1,000 ML IV SCH ×3 (00:20→23:23)
[2019-09-13] MEDS: OXYCODONE/ACETAMINOPHEN 5mg/325mg TAB PO PRN ×2 (00:21→04:05)
[2019-09-13] MEDS: DOXYCYCLINE HYCLATE 100 MG in DEXTROSE 5% 100 ML IV SCH ×2 (03:38→15:52)
[2019-09-13 06:24] LABS: Basophils # (auto) 0.01 K/uL (0-0.2); Basophils % (auto) 0.1 %; Eosinophils # (auto) 0.05 K/uL (0-0.5); Eosinophils % (auto) 0.4 %; Hematocrit (blood only) 31.9 % (37-47); Hemoglobin 10.1 g/dL (12.0-16.0); Immature Granulocytes # (auto) 0.04 K/uL (0.00-0.02); Immature Granulocytes % (auto) 0.3 %; Lymphocytes % (auto) 11.2 %; Mean Corpuscular Hemoglobin 28.2 pg (25-34); Mean Corpuscular Hgb Conc 31.7 g/dL (32-36); Mean Corpuscular Volume 89.1 fL (80-100); Mean Platelet Volume 10.2 fL (7.4-10.4); Monocytes # (auto) 0.62 K/uL (0.11-0.59); Monocytes % (auto) 4.6 %; Neutrophils # (auto) 11.17 K/uL (1.4-6.5); Neutrophils % (auto) 83.4 %; Platelet Count 272 K/uL (130-400); RDW Coefficient of Variation 14.1 % (11.5-14.5); Red Blood Count 3.58 M/uL (4.2-5.4); White Blood Count 13.39 K/uL (4.8-10.8)
[2019-09-13 06:42] LABS: BUN Creatinine Ratio 8.7 (10-20); Calcium 8.3 mg/dl (8.5-10.1); Creatinine Clr Calc Pharmacy 100.3 ml/min; Est GFR (African American) 104.3; Potassium 3.3 mmol/L (3.5-5.1)
--- NOTE | 2019-09-13 07:23 | Gynecologic Progress Note ---
Date of Service September 13, 2019 Assessment & Plan (1) Low oxygen saturation: Continues to need oxygen. When off , sating in the 80s. Will consult [facility] hosptalist for evaluation. (2) TOA (tubo-ovarian abscess): clinically improving and wbc improving. minimal drainage from KALI and serosanguinous. Continue iv abio with plan for outpatient abio. Admission and Anticipated Discharge Date Admission Date: September 12, 2019 Subjective Patient feels well this am. She worked hard overnight on her IS. She notes no cp/sob/chest pressure. Tolerating regular diet without n/v. Has not yet passed gas but feels movement. Pain well controlled. She has never had issues with need for oxygen in the past. She is a smoker. Patient notes she does not feel wheezy. Review of Systems Review of Systems: All systems reviewed & are unremarkable except as noted in HPI & below Physical Exam Constitutional: WD/WN, vitals as above Respiratory: air moves all the way to the bases, however, continues to have rales in the bilateral lower quadrants. no wheezing noted. Does not take a big breath. Results & Data ([facility]) Vital Signs (Past 12 Hours) Vital Signs Temp Pulse Pulse Resp BP Pulse Ox 09/13/19 06:30 92 09/13/19 06:20 92 09/13/19 03:40 36.7 C 80 18 107/70 93 09/13/19 00:15 36.7 C 76 18 129/72 91 09/12/19 20:30 75 93 PG Care Time/CCT Total # of Minutes Spent Total Time Spent with Patient: Total time spent is greater than 50% in coordination of care (as documented) at patient's floor/unit and/or counseling patient: Coding Level of Care Code 16130 Subseq Hosp Care Lvl 1 Diagnoses Low oxygen saturation R79.81 TOA (tubo-ovarian abscess) N70.93
[2019-09-13] MEDS: SIMETHICONE 80 MG CHEW PO PRN ×2 (08:46→18:02)
[2019-09-13] MEDS: DOCUSATE SODIUM 100 MG CAP PO SCH ×2 (08:46→19:59)
[2019-09-13] MEDS: RIVAROXABAN 10 MG TABLET PO SCH (08:46)
--- NOTE | 2019-09-13 09:46 | Communication Note ---
Date of Service: September 13, 2019 Care assumed from off-going provider. Patient is POD#2 from TOA removal with KALI drain in place. Incisions c/d/i and KALI with serosanguineous drainage, maybe 10cc in bulb but some spillage on sheets. Has done well postoperatively from a pain and drainage standpoint, but has had issues with desaturation - she was 96% on RA on arrival, now 92% at best and desats to 80s with ambulation. CXR shows mild atelectasis and exam with rales bilateral bases, she is using IS religiously but perhaps not taking the deepest possible breaths. She additionally has just this morning had a cough episode with reported small amount of blood, though this was not seen by nurse or doctor. She has multiple comorbidities, smoking history, question of COPD in her history, and DVT in her chart (though on my exam today it's a palpable L calf superficial thrombus and Olivia negative on that side), and SCD therefore only on R leg. I am ordering a CT to r/o PE, and have discussed this case with [facility] Medicine JENNIFER Esquivel, placing consult for Dr. Craig, and have discussed that I defer to them on the need for COVID test since they'll be seeing her today.
[2019-09-13] MEDS ORDERED: POTASSIUM CHLORIDE 20 MEQ TABCR PO STA (10:22)
[2019-09-13] MEDS ORDERED: FAMOTIDINE 20MG IV PUSH 20 MG/5 ML SYR IV ONE (10:40)
--- NOTE | 2019-09-13 10:47 | Consultation ---
Date of Consultation September 13, 2019 Assessment & Plan (1) SOB (shortness of breath): (2) Chest pain: (3) Hypoxia: Pt is POD #1 with continued use of supplemental oxygen, hypoxia at rest with further desaturation with ambulation. Chest x-ray showing left lower lobe atelectasis. She is afebrile, WBC trending down - on IV cefoxitin/doxy for FIELD MACHINIST coverage of TOA. 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 will obtain CTA of chest to rule out PE Continue to encourage incentive spirometry, increasing frequency Smoking cessation Encourage ambulation as able EKG WNL, troponin, pro bnp WNL repeat troponin in 6 hours Chest pain/belching -- Likely GERD, given EKG/Troponin WNL - give IV pepcid 20mg x 1 (4) Superficial thrombophlebitis: Patient diagnosed on 07/26 with left lower extremity superficial thrombophlebitis Has been using Xarelto 10 mg daily ever since, admits to being compliant US 6 revealed SVT, no DVT continue xarelto - if CTA negative would recommend close follow up with PCP to discontinue xarelto (5) TOA (tubo-ovarian abscess): POD #1 laparoscopic left salpingo-oophorectomy with pelvic wash and lysis of adhesions by Dr. Liu EBL 100ml; KALI drain 60ml Tolerated procedure well Pain/wound management per FIELD MACHINIST Activity and therapy as directed by FIELD MACHINIST Continue antibiotics per FIELD MACHINIST Continue to encourage incentive spirometry every 1 hour with 10 repetitions and wean O2 as able Hemoglobin hematocrit stable at 10.1 and 31.9, preoperative hemoglobin 13.8 likely dilutional (6) Tobacco abuse: Encourage smoking cessation (7) DVT prophylaxis: Continue Xarelto SCD to RLE, add teds Disposition: Per primary, not medically stable for discharge Follow-up: PCP Dr. Shaw upon discharge Patient was seen and examined in collaboration with Dr. Craig, please see addendum Thank you for this consultation. We will follow the patient with you during their hospital stay. You can reach a member of the [facility] Team 28/09 via pager @ [phone]. Supervising Physician Co-Signing Physician Notes Attending addendum The patient was seen and examined in FIELD MACHINIST unit She is a status post laparoscopic left salpingo-oophorectomy, pelvic washing and lysis of adhesions on 09/11/2019 Noted to have shortness of breath with desaturation especially with ambulation this morning She has been feeling a lot better this afternoon and has been ambulating in the hallway without any symptoms On examination Anxious but lying in bed comfortably Chest-clear to auscultate bilaterally Heart-S1-S2, regular Abdomen-soft and tender Assessment and plan Labs and imaging studies reviewed including COVID-19 test that came out to be negative No pulmonary embolism. No infiltrate Continue spirometry Ambulate in the hallway Agree with assessment plan as outlined above by MONICA Monahan Dr History of Present Illness Requesting Physician: Dr. Milian Reason for Consultation: Postoperative hypoxia. Attending Physician: Valentin Liu MD History of Present Illness This is a 48-year-old female who has significant PMH of GERD and tobacco abuse who is hospitalized for left tubo-ovarian abscess. She underwent laparoscopic left salpingo-oophorectomy, pelvic washings and lysis of adhesions by Dr. Liu. She is POD #1 and EBL was approximately 100 mL's. She is currently on IV antibiotics with doxycycline and Mefoxin. We have been consulted secondary to hypoxia and patient requiring oxygen. Postoperatively she has continued to require 2 L of oxygen to maintain saturation of approximately 92%. Presenting O2 saturation on room air was approximately 95%. Nursing staff has been unable to wean her of O2 and with ambulation she has desaturated into the 80s. Currently the patient is comfortable at rest on 2 L of O2. She denies any shortness breath at rest but does admit to feeling shortness of breath after ambulating about the unit. She recently went for a wa lk around the unit with the nurse developed shortness of breath, desaturated into the 80s and while resting after walking started complaining of right-sided chest discomfort. Discomfort was nonradiating, rated 3/10, was coming and going, made worse with belching, felt similar to prior heartburn. She does have a significant history of tobacco abuse and episode of bronchitis/pneumonia approximately 2 to 3 years ago that did not require hospitalization. She denies any consistent coughing, but did admit when in the bathroom she did have episode of coughing and felt that it was, "speckled with blood." She denies any fever, chills, sweats, lightheadedness, dizziness, syncope, palpitations, shortness breath at rest, nausea, vomiting. She does have abdominal tenderness secondary to incisions and has not moved her bowels. Is passing flatus. She denies any dysuria, increased urgency or frequency with urination. She has been using her incentive spirometer. Denies known exposure to covid-19, loss of taste/smell or recent travel. Allergies Allergy/AdvReac Type Severity Reaction Status Date / Time No Known Allergies Allergy Mild Unverified 12/31/05 17:03 Home Medications Home Medications Medication Instructions Recorded Confirmed Type hydroxyzine HCl 10 mg PO UD PRN 09/11/19 09/11/19 History ibuprofen 400 mg PO Q6H PRN 09/11/19 09/11/19 History rivaroxaban [Xarelto] 10 mg PO DAILY 09/11/19 09/11/19 History simethicone [Mi-Acid Gas 80 mg PO QID PRN 09/11/19 09/11/19 History Relief(simethicon)] Patient History Medical History (Updated 09/13/19 @ 12:07 by Sierra Stringer PA-C) GERD (gastroesophageal reflux disease) Tobacco abuse Surgical History (Updated 09/13/19 @ 10:55 by Sierra Stringer PA-C) History of x 3 History of left salpingo-oophorectomy Family History (Updated 09/13/19 @ 10:58 by Sierra Stringer PA-C) Mother Diabetes Coronary heart disease Hypertension Father Stroke Social History (Updated 09/13/19 @ 10:58 by Sierra Stringer PA-C) Preferred Language: Slovak Communication Ability: Effective Assisted Living Nursing Director Required: No Beliefs That Will Affect Care: None marital status: Current Living Situation: Family Current Living Situation Comment: son current occupational status: employed Feels Safe at Home: Yes Smoking Status: Current every day smoker Tobacco Type: cigarettes ; Cigarettes Per Day: 1/2 pack ; Second Hand Exposure: Yes ; Hx Alcohol Use: Yes Alcohol type: beer Hx Substance Use: No Review of Systems Review of Systems: All systems reviewed & are unremarkable except as noted in HPI & below Physical Exam Physical Exam: Constitutional: WD/WN, female, sitting up at bedside, vitals as above, NAD, pleasant, conversing easily Head: Normocephalic, Atraumatic Eyes: PERRL, conjunctivae normal, anicteric sclerae ENMT: external ear and nose normal, oropharynx normal Neck: trachea midline, no thyromegaly normal visual inspection Respiratory: normal respiratory effort, on O2 via NC, lungs clear to auscultation, no wheeze, rales, rhonchi. Normal insp/exp effort, no accessory muscle use Cardiovascular: RRR, no murmur, left lower extremity anterior tibial thrombosed revision phlebitis, nontender, no erythema or warmth, negative Homans sign, no edema Vessels: no JVD or carotid bruit Chest: normal inspection of chest Abdomen: Dressings CDI, normal bowel sounds, soft, nontender, no hepatosplenomegaly Musculoskeletal: no cyanosis or clubbing, extremities motor strength 5/5 Skin: no rashes, warm and dry normal turgor Neurologic: PERRL, EOMI, accommodation nl, no face palsy, no dysarthria CN's II-XI intact bilaterally and moves all extremities Psychiatric: A+Ox3, euthymic affect Lymphatic: no cervical or axillary lymphadenopathy : deferred Results & Data ([facility]) Vital Signs (Past 12 Hours) Vital Signs Temp Pulse Resp BP Pulse Ox 09/13/19 08:15 36.9 C 80 20 112/73 92 09/13/19 06:30 92 09/13/19 06:20 92 09/13/19 03:40 36.7 C 80 18 107/70 93 09/13/19 00:15 36.7 C 76 18 129/72 91 Laboratory Results Short CBC 09/13/19 Range/Units 05:24 WBC 13.39 H (4.8-10.8) K/uL Hgb 10.1 L D (12.0-16.0) g/dL Hct 31.9 L (37-47) % Plt Count 272 (130-400) K/uL BMP 09/13/19 05:24 Sodium 141 Potassium 3.3 L Chloride 110 H Carbon Dioxide 25 BUN 7 Creatinine 0.77 Glucose 109 H Calcium 8.3 L Cardiac Enzymes 09/13/19 Range/Units 10:26 Troponin I < 0.015 (0-0.045) ng/ml Diagnostic Findings CXR: IMPRESSION: Minimal parenchymal infiltrate/atelectasis left base. CT abd/pelvis: IMPRESSION: 1. Enlarged multicystic left ovary measuring 63 mm. There is infiltration of the adjacent fat. Clinical correlation to exclude ovarian torsion or tubo-ovarian abscess is recommended. 2. No evidence of bowel obstruction. No evidence of free air 3. Diverticulosis without current evidence of acute diverticulitis 4. Free pelvic fluid, slightly in excess of that expected for physiologic free fluid 5. Borderline appendiceal dilatation without evidence of periappendiceal inflammatory change 6. Cholelithiasis. 7. 3 cm indeterminate left adrenal nodule Medications Administered Docusate Sodium (Colace) 100 mg PO BID BING Stop: 10/12/19 08:59 Last Admin: 09/13/19 08:46 Dose: 100 mg Documented by: [id number] Admin: 09/12/19 20:24 Dose: 100 mg Documented by: [id number] Admin: 09/12/19 09:03 Dose: 100 mg Documented by: [id number] Cefoxitin Sodium 2,000 mg/ (Dextrose) 60 mls @ 100 mls/hr IV Q6H BING Stop: 09/22/19 05:59 Last Infusion: 09/13/19 06:45 Dose: 0 mls/hr Documented by: [id number] Admin: 09/13/19 06:08 Dose: 100 mls/hr Documented by: [id number] Infusion: 09/13/19 00:40 Dose: 0 mls/hr Documented by: [id number] Admin: 09/13/19 00:07 Dose: 120 mls/hr Documented by: [id number] Infusion: 09/12/19 19:28 Dose: 0 mls/hr Documented by: [id number] Admin: 09/12/19 18:50 Dose: 100 mls/hr Documented by: [id number] Infusion: 09/12/19 13:15 Dose: 0 mls/hr Documented by: [id number] Admin: 09/12/19 12:39 Dose: 100 mls/hr Documented by: [id number] Infusion: 09/12/19 07:10 Dose: 0 mls/hr Documented by: [id number] Admin: 09/12/19 06:34 Dose: 100 mls/hr Documented by: [id number] Doxycycline Hyclate 100 mg/ (Dextrose) 110 mls @ 50 mls/hr IV Q12H BING Stop: 09/22/19 03:59 Last Infusion: 09/13/19 06:00 Dose: 0 mls/hr Documented by: [id number] Admin: 09/13/19 03:38 Dose: 55 mls/hr Documented by: [id number] Infusion: 09/12/19 18:18 Dose: 0 mls/hr Documented by: [id number] Admin: 09/12/19 16:05 Dose: 50 mls/hr Documented by: [id number] Infusion: 09/12/19 06:29 Dose: 50 mls/hr Documented by: [id number] Admin: 09/12/19 04:17 Dose: 50 mls/hr Documented by: [id number] Lactated Ringer's (Lr) 1,000 mls @ 125 mls/hr IV .Q8H BING Stop: 10/12/19 06:29 Last Admin: 09/13/19 10:47 Dose: 125 mls/hr Documented by: [id number] Infusion: 09/13/19 10:47 Dose: 125 mls/hr Documented by: [id number] Infusion: 09/13/19 06:45 Dose: 125 mls/hr Documented by: [id number] Infusion: 09/13/19 06:08 Dose: 0 mls/hr Documented by: [id number] Infusion: 09/13/19 06:00 Dose: 125 mls/hr Documented by: [id number] Infusion: 09/13/19 03:38 Dose: 0 mls/hr Documented by: [id number] Admin: 09/13/19 00:20 Dose: 125 mls/hr Documented by: [id number] Infusion: 09/13/19 00:04 Dose: 125 mls/hr Documented by: [id number] Infusion: 09/12/19 19:28 Dose: 125 mls/hr Documented by: [id number] Infusion: 09/12/19 18:51 Dose: 0 mls/hr Documented by: [id number] Infusion: 09/12/19 18:18 Dose: 125 mls/hr Documented by: [id number] Infusion: 09/12/19 16:06 Dose: 0 mls/hr Documented by: [id number] Infusion: 09/12/19 13:15 Dose: 125 mls/hr Documented by: [id number] Infusion: 09/12/19 12:41 Dose: 0 mls/hr Documented by: [id number] Admin: 09/12/19 12:40 Dose: 125 mls/hr Documented by: [id number] Infusion: 09/12/19 12:39 Dose: 0 mls/hr Documented by: [id number] Infusion: 09/12/19 07:10 Dose: 125 mls/hr Documented by: [id number] Infusion: 09/12/19 06:34 Dose: 0 mls/hr Documented by: [id number] Admin: 09/12/19 03:30 Dose: 125 mls/hr Documented by: [id number] Ioversol (Optiray 320 100ml) 93 ml IV ONCE PRN PRN Reason: Interaction Checking Stop: 09/15/19 19:05 Last Admin: 09/11/19 19:07 Dose: 93 ml Documented by: [id number] Oxycodone/Acetaminophen (Percocet 5mg/325mg) 1 tab PO Q4H PRN PRN Reason: Pain Scale 1,2,3,4,5 Stop: 09/26/19 01:40 Last Admin: 09/13/19 04:05 Dose: 1 tab Documented by: [id number] Admin: 09/13/19 00:21 Dose: 1 tab Documented by: [id number] Admin: 09/12/19 17:28 Dose: 1 tab Documented by: [id number] Admin: 09/12/19 12:39 Dose: 1 tab Documented by: [id number] Admin: 09/12/19 09:03 Dose: 1 tab Documented by: [id number] Rivaroxaban (Xarelto) 10 mg PO DAILY BING Stop: 10/12/19 08:59 Last Admin: 09/13/19 08:46 Dose: 10 mg Documented by: [id number] Admin: 09/12/19 09:03 Dose: 10 mg Documented by: [id number] Simethicone (Mylicon) 80 mg PO TID PRN PRN Reason: Gas Stop: 10/12/19 01:40 Last Admin: 09/13/19 08:46 Dose: 80 mg Documented by: [id number] Admin: 09/12/19 09:03 Dose: 80 mg Documented by: [id number] Discontinued Medications Bupivacaine HCl (Marcaine 0.5% Mpf) Confirm Administered Dose 30 ml .ROUTE .STK- MED ONE Stop: 09/11/19 22:10 Last Admin: 09/12/19 01:38 Dose: 12 ml Documented by: [id number] Hydromorphone HCl (Dilaudid) 1 mg IV NOW STA Stop: 09/11/19 18:06 Last Admin: 09/11/19 18:47 Dose: 1 mg Documented by: [id number] Hydromorphone HCl (Dilaudid) 0.5 mg IV NOW STA Stop: 09/11/19 21:10 Last Admin: 09/11/19 21:31 Dose: 0.5 mg Documented by: [id number] Sodium Chloride (Nss 1000ml) 2,000 mls @ 999 mls/hr IV .Q2H1M ONE Stop: 09/11/19 20:05 Last Infusion: 09/11/19 20:47 Dose: 0 mls/hr Documented by: [id number] Admin: 09/11/19 18:47 Dose: 999 mls/hr Documented by: [id number] Famotidine (Pepcid 20mg Iv Push) 20 mg in 5 mls @ 2.5 mls/min IV NOW ONE Stop: 09/13/19 10:41 Last Admin: 09/13/19 10:47 Dose: 2.5 mls/min Documented by: [id number] Miscellaneous (Tisseel Fibrin Sealant 10ml) 10 ml TOP ONCE ONE Stop: 09/12/19 01:26 Last Admin: 09/12/19 01:26 Dose: Not Given Documented by: [id number] Ondansetron HCl (Zofran) 4 mg IV NOW STA Stop: 09/11/19 18:06 Last Admin: 09/11/19 18:47 Dose: 4 mg Documented by: [id number] Potassium Chloride (Klor-Con M20) 40 meq PO NOW STA Stop: 09/13/19 10:23 Last Admin: 09/13/19 10:56 Dose: 40 meq Documented by: [id number] ECG Rate (beats per minute): 76 Rhythm: normal sinus
[2019-09-13 10:59] LABS: NT Pro B Type Natriuretic Pept 533 pg/ml (0-900); Troponin I < 0.015 ng/ml (0-0.045)
[2019-09-13] MEDS ORDERED: OPTIRAY 320 125ml IV PRN (11:11)
--- NOTE | 2019-09-13 11:32 | CT Scan Report ---
CT ANGIOGRAPHY OF THE CHEST, PULMONARY EMBOLUS PROTOCOL CLINICAL HISTORY: Hypoxia. Evaluate for pulmonary embolus. COMPARISON STUDY: Chest radiograph September 12, 2019. TECHNIQUE: Following IV administration of 118 mL of Optiray-320, helical axial images of the chest we re obtained utilizing the pulmonary embolus protocol. Maximal intensity projections and sagittal and coronal reformats were viewed on an independent 3D workstation. IV contrast was administered withou t complication. Automated exposure control was utilized for the study. A dose lowering technique wa s utilized adhering to the principles of ALARA. CT DOSE: 546.31 mGycm FINDINGS: No pulmonary emboli identified. There is no evidence for thoracic aortic dissection. The s ize of the heart is normal. There is no pericardial effusion. There is mild circumferential wall thic kening of the midesophagus. There are trace bilateral pleural effusions. There is no pneumothorax. Lo wer lobe subpleural opacities reflect atelectasis. There is no consolidation. Mild emphysema is prese nt. Note is made of a 1.4 cm right apical irregular opacity on image 224 of 268. There is a 1.6 cm gr oundglass focus within the left upper lobe on image 174. Bony thorax is unremarkable. There is no tho racic lymphadenopathy. IMPRESSION: 1. No pulmonary emboli identified. 2. Trace bilateral pleural effusions with associated subpleural opacities consistent with atelectasis . 3. 1.4 cm right apical opacity. This favors scarring. However, a follow-up chest CT in 6 months is re commended to exclude the unlikely possibility of pulmonary nodule. Low suspicion 1.6 cm groundglass f ocus within the left upper lobe can also be assessed on that exam. 4. Mild wall thickening mid esophagus which may reflect esophagitis. 5. Emphysema. ACT 112: Negative or not required by law. Electronically signed by: Rehan Washburn M.D. 09/13/2019 11:31 AM
[2019-09-13] MEDS: PANTOprazole 40 MG TAB PO SCH (12:35)
[2019-09-13] MEDS: ACETAMINOPHEN 325 MG TAB PO PRN (18:02)
[2019-09-14] MEDS: cefOXitin 2,000 MG in DEXTROSE 5% 50 ML IV SCH ×2 (00:38→06:44)
[2019-09-14] MEDS: SIMETHICONE 80 MG CHEW PO PRN (00:54)
[2019-09-14] MEDS: DOXYCYCLINE HYCLATE 100 MG in DEXTROSE 5% 100 ML IV SCH (04:30)
[2019-09-14] MEDS: ACETAMINOPHEN 325 MG TAB PO PRN (04:37)
--- NOTE | 2019-09-14 05:56 | Electrocardiogram Report ---
Test Reason : Blood Pressure : / mmHG Vent. Rate : 076 BPM Atrial Rate : 076 BPM P-R Int : 128 ms QRS Dur : 076 ms QT Int : 410 ms P-R-T Axes : 066 060 051 degrees QTc Int : 461 ms Normal sinus rhythm Cannot rule out Anterior infarct vs lead placement Abnormal ECG No previous ECGs available Confirmed by Wu Ashford ([id number]) on 09/14/2019 5:56:22 AM Referred By: REFERRED SELF Confirmed By:Wu Ashford
[2019-09-14 06:53] LABS: BUN Creatinine Ratio 7.7 (10-20); Calcium 7.8 mg/dl (8.5-10.1); Creatinine Clr Calc Pharmacy 100.3 ml/min; Est GFR (African American) 104.3; Potassium 3.8 mmol/L (3.5-5.1)
[2019-09-14] MEDS: OXYCODONE/ACETAMINOPHEN 5mg/325mg TAB PO PRN ×2 (07:43→12:02)
--- NOTE | 2019-09-14 08:29 | Gynecologic Progress Note ---
Date of Service September 14, 2019 Assessment & Plan (1) Low oxygen saturation: Seen by hospitalist yesterday; input appreciated. Plan was for them to reassess today and determine whether OK for home with outpatient f/u, versus need for desat workup and arrange for home O2. At this point patient is cleared for discharge from surgical standpoint. If hospitalists agree patient can go home, this is arranged. If not, would discuss medicine admit for remaining care. (2) TOA (tubo-ovarian abscess): Transition from IV to PO abx and ready for home, with 1-2 week office follow up to be scheduled with Dr. Liu. Admission and Anticipated Discharge Date Admission Date: September 12, 2019 Subjective YESTERDAY: Patient feels well this am. She worked hard overnight on her IS. She notes no cp/sob/chest pressure. Tolerating regular diet without n/v. Has not yet passed gas but feels movement. Pain well controlled. She has never had issues with need for oxygen in the past. She is a smoker. Patient notes she does not feel wheezy. NEW TODAY: Patient feeling much better. Has been able to ambulate. Doing IS regularly. Lying in bed this morning 94-96% on RA. Regular diet, toileting, ok on PO pain mgmt. Feels eager to go home. Aware of need for PCP f/u for emphysema, new lung nodule. Aware of need for f/u with Dr. Liu for TOA. Physical Exam Constitutional: WD/WN, vitals as above Eyes: PERRL, conjunctivae normal, anicteric sclerae ENMT: external ear and nose normal, oropharynx normal Neck: trachea midline, no thyromegaly Respiratory: normal respiratory effort and able to speak in complete sentences; no respiratory distress Cardiovascular: Rate/Rhythm: regular rate and regular rhythm Extremities: no edema (scd's on while in bed) Gastrointestinal (Abdomen): Inspection/Auscultation: abdomen normal to inspection and + abdominal surgical incision (C/d/i with glue.) Percussion/Palpation: abdomen soft; abdomen nontender KALI drain removed this morning. Dressing removed, sutures cut, drain opened to remove suction, and with cough for pain gating, drain smoothly pulled. End comfirmed to be complete. Two bandaids applied over site approximating skin edges. Skin: no rashes, warm and dry Psychiatric: A+Ox3, euthymic affect Lymphatic: no inguinal lymphadenopathy Results & Data ([facility]) Vital Signs (Past 12 Hours) Vital Signs Temp Pulse Resp BP Pulse Ox Pulse Ox 09/14/19 00:40 98.6 F 87 18 111/73 94 09/13/19 20:55 95 PG Care Time/CCT Total # of Minutes Spent Total Time Spent with Patient: Total time spent is greater than 50% in coordination of care (as documented) at patient's floor/unit and/or counseling patient: Coding Level of Care Code D/C Day Management <30 mins Diagnoses Low oxygen saturation R79.81 TOA (tubo-ovarian abscess) N70.93
[2019-09-14] MEDS: PANTOprazole 40 MG TAB PO SCH (08:48)
[2019-09-14] MEDS: RIVAROXABAN 10 MG TABLET PO SCH (08:48)
--- NOTE | 2019-09-14 12:50 | Hospitalist Progress Note ---
Date of Service September 14, 2019 Assessment & Plan (1) SOB (shortness of breath): CTA of the chest: 1. No pulmonary emboli identified. 2. Trace bilateral pleural effusions with associated subpleural opacities consistent with atelectasis. 3. 1.4 cm right apical opacity. This favors scarring. However, a follow-up chest CT in 6 months is recommended to exclude the unlikely possibility of pulmonary nodule. Low suspicion 1.6 cm groundglass focus within the left upper lobe can also be assessed on that exam. 4. Mild wall thickening mid esophagus which may reflect esophagitis. 5. Emphysema. She was advised to have a repeat CT scan in 6-month to evaluate suspected pulmonary nodule as above. (2) Chest pain: Serial cardiac enzymes and initial EKG were unremarkable She did not have any more chest pain since yesterday No need to have any further work-up (3) Hypoxia: Pt is POD #2 with continued use of supplemental oxygen, hypoxia at rest with further desaturation with ambulation. Chest x-ray showing left lower lobe atelectasis. She is afebrile, WBC trending down - on IV cefoxitin/doxy for [facility] coverage of TOA. 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 will obtain CTA of chest to rule out PE Continue to encourage incentive spirometry, increasing frequency Smoking cessation Has been feeling a lot better this morning Denies any respiratory symptoms and has been ambulating without any problem She will be going home this afternoon (4) Superficial thrombophlebitis: Patient diagnosed on 07/26 with left lower extremity superficial thrombophlebitis Has been using Xarelto 10 mg daily ever since, admits to being compliant US 08/06 revealed SVT, no DVT continue xarelto - if CTA negative would recommend close follow up with PCP to discontinue xarelto (5) TOA (tubo-ovarian abscess): POD #1 laparoscopic left salpingo-oophorectomy with pelvic wash and lysis of adhesions by Dr. Liu EBL 100ml; KALI drain 60ml Tolerated procedure well Pain/wound management per [facility] Activity and therapy as directed by [facility] Continue antibiotics per [facility] Continue to encourage incentive spirometry every 1 hour with 10 repetitions and wean O2 as able Hemoglobin hematocrit stable at 10.1 and 31.9, preoperative hemoglobin 13.8 likely dilutional She will be discharged home this afternoon from [facility] service (6) Tobacco abuse: Encourage smoking cessation (7) DVT prophylaxis: Continue Xarelto SCD to RLE, add teds Disposition: Per primary, not medically stable for discharge Follow-up: PCP Dr. Shaw upon discharge Admission and Anticipated Discharge Date Admission Date: September 12, 2019 Subjective The patient was seen and examined in [facility] floor She denies any complaints and ready to be discharged No shortness of breath or chest pain and has been ambulating in the hallway without any problem Review of Systems Review of Systems: All systems reviewed and are unremarkable except as noted below Gastrointestinal: Minimal abdominal discomfort Physical Exam Physical Exam: Lying in bed comfortably Constitutional: well developed and well nourished; no acute distress and not ill appearing Eyes: PERRL, conjunctivae normal, anicteric sclerae ENMT: external ear and nose normal, oropharynx normal Neck: trachea midline, no thyromegaly Respiratory: normal respiratory effort; no respiratory distress Auscultation: lungs clear to auscultation bilaterally Cardiovascular: Rate/Rhythm: regular rate and regular rhythm Heart Sounds: no murmur Gastrointestinal (Abdomen): Inspection/Auscultation: abdomen normal to inspection; abdomen not distended Percussion/Palpation: + abdomen tender (Minimally tender lower abdomen) and abdomen soft Musculoskeletal: No acute arthritis involving any joints Results & Data Results & Data ([facility]) Vital Signs (Past 12 Hours) Vital Signs Temp Pulse Pulse Pulse Resp BP BP 09/14/19 11:29 36.6 C 85 80 87 16 123/81 146/79 H 09/14/19 07:48 36.6 C 80 16 123/81 Pulse Ox 09/14/19 11:29 95 09/14/19 07:48 95 Laboratory Results BMP 09/14/19 05:48 Sodium 145 Potassium 3.8 D Chloride 116 H Carbon Dioxide 23 BUN 6 L Creatinine 0.77 Glucose 99 Calcium 7.8 L Cardiac Enzymes 09/13/19 Range/Units 15:02 Troponin I < 0.015 (0-0.045) ng/ml Medications Administered Current Inpatient Medications Acetaminophen (Tylenol) 650 mg PO Q6H PRN PRN Reason: pain, headache or fever Stop: 10/12/19 01:40 Last Admin: 09/14/19 04:37 Dose: 650 mg Documented by: Amoxicillin/Clavulanate Potassium (Augmentin 875mg) 1 tab PO BIDM [facility] Stop: 09/24/19 16:59 Lactated Ringer's (Lr) 1,000 mls @ 125 mls/hr IV .Q8H [facility] Stop: 10/12/19 06:29 Last Infusion: 09/14/19 09:18 Dose: 0 mls/hr Documented by: Ioversol (Optiray 320 100ml) 93 ml IV ONCE PRN PRN Reason: Interaction Checking Stop: 09/15/19 19:05 Last Admin: 09/11/19 19:07 Dose: 93 ml Documented by: Ioversol (Optiray 320 125ml) 118 ml IV ONCE PRN PRN Reason: Interaction Checking Stop: 09/17/19 11:10 Last Admin: 09/13/19 11:12 Dose: 118 ml Documented by: Ondansetron HCl (Zofran) 4 mg IV Q6H PRN PRN Reason: Nausea And Vomiting Stop: 10/12/19 01:40 Oxycodone/Acetaminophen (Percocet 5mg/325mg) 1 tab PO Q4H PRN PRN Reason: Pain Scale 1,2,3,4,5 Stop: 09/26/19 01:40 Last Admin: 09/14/19 12:02 Dose: 1 tab Documented by: Oxycodone/Acetaminophen (Percocet 5mg/325mg) 2 tab PO Q4H PRN PRN Reason: Pain Scale 6,7,8,9,10 Stop: 09/26/19 01:40 Pantoprazole Sodium (Protonix) 40 mg PO QAM [facility] Stop: 09/16/19 09:01 Last Admin: 09/14/19 08:48 Dose: 40 mg Documented by: Rivaroxaban (Xarelto) 10 mg PO DAILY [facility] Stop: 10/12/19 08:59 Last Admin: 09/14/19 08:48 Dose: 10 mg Documented by: Simethicone (Mylicon) 80 mg PO TID PRN PRN Reason: Gas Stop: 10/12/19 01:40 Last Admin: 09/14/19 00:54 Dose: 80 mg Documented by:
[2019-09-14] MEDS ORDERED: AMOXICILLIN/CLAVULANATE 875 MG TAB PO SCH (17:00)
--- NOTE | 2019-09-18 08:01 | Operative Report (OR) ---
DATE OF OPERATION: 09/11/2019 OPERATIVE PROCEDURE: Laparoscopic left salpingo-oophorectomy, extensive lysis of adhesions, abdominal pelvic washout. PREOPERATIVE DIAGNOSES: 1. Left adnexal cyst. 2. Severe left-sided pelvic pain. POSTOPERATIVE DIAGNOSES: 1. Ruptured left tubo-ovarian abscess. 2. Extensive adhesions from abscess. SURGEON: Valentin Liu MD. ESTIMATED BLOOD LOSS: 100 mL. DRAINS: A Mcdonough catheter. FLUIDS: Continuous lactated Ringer. URINE OUTPUT: Per Mcdonough catheter. COMPLICATIONS: None. FINDINGS: Upon entry into the abdomen, inspection was performed in Trendelenburg position and there was noted to be no movement of the omentum and bowels from the lower pelvis due to adhesions. There was noted to be pus covering the omentum. After dissection of adhesions allowing the bowel and omentum to retract into the upper abdomen due to Trendelenburg positioning, there was noted to be a tubo-ovarian abscess in the left adnexa. The left tube was actually fairly normal-appearing and the abscess seemed to be consisted of only the left ovary. There was extensive adhesive disease to the lower pelvis and to the tubo-ovarian abscess. There was noted to be pus coming from the abscess consistent with an tubo-ovarian rupture. There was pus throughout the abdomen and pelvis, which was washed with copious irrigation. DESCRIPTION OF PROCEDURE: The patient was taken to the operating room after consents were ensured. Upon presentation, she was properly identified. General endotracheal anesthesia was obtained without difficulty. The patient was then prepped and draped in normal sterile fashion. A Mcdonough catheter was placed as well as an acorn uterine manipulator. The laparoscopic portion of the case was then initiated. An incision was made in the superior aspect of umbilicus to accommodate a 12 mm trocar. A Veress needle was inserted through the incision. Abdomen was insufflated to 15 mmHg. There was noted to be symmetric abdominal rise, tympany over the liver and opening pressure of approximately 7 mmHg, all consistent with appropriate intra-abdominal insufflation. An optically guided 12 mm trocar was then introduced through the incision. The immediate inspection was notable for atraumatic entry. The inspection of the abdomen and pelvis was then performed and the patient was placed in Trendelenburg with findings as noted above. The 5 mm incisions were then made in the right and left lower quadrants and 5 mm trocar was introduced under direct visualization, atraumatic entry noted. Dissection of the omentum and bowels off of the tubo-ovarian abscess was then performed. This took approximately 45 minutes to 1 hour. The abscess was also adhered to the lateral sidewall and uterus. This was all dissected to allow for mobilization of the IP ligament. After the ovary and tube were then freed, the tube was initially dissected to allow for easier dissection of the abscess and ovary. The IP ligament was then identified and was serially cauterized and dissected adjacent to the tubo-ovarian abscess to the level of the uterine cornua. This was transected and the tubo-ovarian abscess was otherwise intact other than the previously noted small area of rupture. The tube and ovary were then placed in EndoCatch bag and delivered through the 12 mm incision at the belly button. Care was taken to not allow any spillage of the contents into the incision. During removal of the ovary and fallopian tube, the trocar was then replaced and the abdomen was copiously irrigated and washed on with several bags of saline. The decision was made to end the case at that time and a KALI drain was then placed through the left trocar site and placed on suction per digital retoucher's recommendations. The patient was then taken out of Trendelenburg and trocars were removed. The fascial incision was reapproximated with 0 Vicryl at the umbilicus for full closure of the fascial layer. The skin was reapproximated of all incisions with 3-0 Vicryl in an interrupted stitch. Needle, sponge and instrument counts were correct at the completion of the case. The patient received antibiotic after discovering that it was a tubo-ovarian abscess and will be continued on IV antibiotics postoperatively. I attest to the content of the Intraoperative Record and any orders documented therein. Any exception s are noted below.
--- NOTE | 2019-09-26 14:20 | Discharge Summary (DS) ---
PROCEDURES WHILE ADMITTED: Operative laparoscopy with left salpingo-oophorectomy and extensive lysis of adhesions and abdominal pelvic washout. HOSPITAL COURSE: The patient presented to the Emergency Department with a several day history of severe left sided abdominopelvic pain. The patient reports that the pain had worsened over time and was unbearable at time of evaluation. In the ED the patient was noted to be in severe pain on the left side with the ultrasound and CT findings of a left adnexal cyst favoring a hemorrhagic cyst or tubo-ovarian abscess. Due to the patient's severe pain at the time decision was made to proceed with an operative/diagnostic laparoscopy with a possible left salpingo-oophorectomy. Once the abdomen was entered, there was noted to be a tubo-ovarian abscess and the above-noted procedure was performed without complication. The patient remained inhouse on IV antibiotics secondary to the tubo-ovarian abscess for approximately 72 hours post procedure. The patient was transitioned over to Augmentin. The patient's recovery course was complicated by low oxygen saturation and a workup in conjunction with internal medicine was notable for atelectasis and lung changes associated with chronic tobacco use, where were determined the underlying cause of her decreased oxygen saturations. After the workup was complete and noted to be free of pulmonary embolus the patient was determined stable for discharge as her white count had improved and she remained afebrile. The patient was provided with both written and verbal discharge instructions. Discharged home in stable condition. The patient is planned for followup in 2 weeks; was instructed to call if any issues arose.
== END 2019-09-14 13:00 | disposition home or self-care (01) | DRG 742 ==
LOC: ED 16:39 → OR 22:43 → 4S2 09-12 01:41